=== PATIENT | female | born 1985 | race Caucasian/White ===

== ENCOUNTER 2017-08-09 10:14 | Emergency (ER) | payer BC, OTHER ==
[~2017-08-09] VITALS: Ht 160 cm; Wt 70.0 kg
[~2017-08-09 10:14] MED LIST: METHY500 PO
[2017-08-09 10:16] VITALS: BP 119/82; PULSE 88; RESP 17; TEMP 98.3; O2SAT 97
[2017-08-09] MEDS ORDERED: SODIUM CHLOR 0.9% 1000 ML INJ 1,000 ML IV SCH (10:52)
[2017-08-09] MEDS ORDERED: SODIUM CHLORIDE 0.9% FLUSH 10 ML FLUSH IV FLUSH PRN (11:00)
[2017-08-09 11:11] VITALS: BP 105/73; PULSE 87; RESP 20; TEMP 98.3; O2SAT 98
[2017-08-09 11:31] LABS: BASOPHIL % 0.2 % (0.0-2.0); EOSINOPHIL % 0.2 % (0.0-4.0); HEMATOCRIT 40.5 % (35.0-46.0); HEMO FLAGS DIFF FINAL; LYMPH % 13.6 % (9.0-44.0); LYMPHOCYTE # 1.6 TH/MM3 (1.0-4.8); MEAN CORPUSCULAR HEMOGLOBIN 30.1 PG (27.0-34.0); MEAN CORPUSCULAR HGB CONC 34.2 % (32.0-36.0); MONO % 7.5 % (0.0-8.0); NEUT % 78.5 % (16.0-70.0); PLATELET COUNT 189 TH/MM3 (150-450); WHITE BLOOD COUNT 11.5 TH/MM3 (4.0-11.0)
[2017-08-09 11:43] LABS: ALT (GPT) 20 U/L (10-53); ANION GAP 4 MEQ/L (5-15); AST (GOT) 13 U/L (15-37); BICARBONATE 23.4 MEQ/L (21.0-32.0); BLOOD UREA NITROGEN 10 MG/DL (7-18); CHLORIDE 105 MEQ/L (98-107); GLOMERULAR FILTRATION RATE 179 ML/MIN (>89); POTASSIUM 3.8 MEQ/L (3.5-5.1); SODIUM (NA) 132 MEQ/L (136-145)
[2017-08-09 11:45] LABS: ALKALINE PHOSPHATASE 101 U/L (45-117); TOTAL BILIRUBIN ADULT 0.4 MG/DL (0.2-1.0)
[2017-08-09 11:49] LABS: BACTERIA, URINE FEW /hpf; BLOOD, URINE TRACE (NEG); COMMENT (UR) CULTURE INDICATED; CULTURE IF INDICATED CULTURE INDICATED; GLUCOSE,URINE NEG (NEG); HYALINE CAST, URINE 2 /lpf (RARE); KETONE, URINE NEG (NEG); MUCUS URINE FEW /lpf (OCC); NITRITE,URINE NEG (NEG); SQUAMOUS EPITHELIAL CELL URINE 51 /hpf (0-5); URINE COLOR YELLOW (YELLW/STRAW)
[2017-08-09] MEDS ORDERED: CEPH-460 PO (11:53)
--- NOTE | 2017-08-09 11:54 | PD ---
HPI Chief Complaint: Complaint Time Seen by Provider: 10:32 Travel History International Travel<30 days: No Contact w/Intl Traveler<30days: No Traveled to known affect area: No History of Present Illness HPI Patient is a 33 week 31-year-old female she follows with Dr. Becker. She is 2 para 1. She's had diarrhea for 2 days. It has been nonbloody. He's had no fever. She reports vomiting yesterday afternoon. She reports 8 episodes of diarrhea per day. Decreased urination is reported. No fever. PFSH Past Medical History Medical History: Denies Significant Hx Diminished Hearing: No Tetanus Vaccination: > 5 Years ?: Social History Alcohol Use: No Tobacco Use: No Substance Use: No Allergies-Medications (Allergen,Severity, Reaction): Coded Allergies: sulfamethoxazole (Unverified Allergy, Mild, 08/09/17) trimethoprim (Unverified Allergy, Mild, 08/09/17) Reported Meds & Prescriptions Reported Meds & Active Scripts Active Keflex (Cephalexin) 500 Mg Cap 500 Mg PO Q12H 7 Days Review of Systems Except as stated in HPI: all other systems reviewed are Neg General / Constitutional: No: Fever Physical Exam Narrative GENERAL: 31-year-old female well-nourished well-developed acute distress SKIN: Focused skin assessment warm/dry. HEAD: Atraumatic. Normocephalic. EYES: Pupils equal and round. No scleral icterus. No injection or drainage. ENT: No nasal bleeding or discharge. Mucous membranes pink and moist. NECK: Trachea midline. No JVD. CARDIOVASCULAR: Regular rate and rhythm. No murmur appreciated. RESPIRATORY: No accessory muscle use. Clear to auscultation. Breath sounds equal bilaterally. GASTROINTESTINAL: Gravid abdomen. Soft. MUSCULOSKELETAL: No obvious deformities. No clubbing. No cyanosis. No edema. NEUROLOGICAL: Awake and alert. No obvious cranial nerve deficits. Motor grossly within normal limits. Normal speech. PSYCHIATRIC: Appropriate mood and affect; insight and judgment normal. Data Data Last Documented VS Vital Signs Date Time Temp Pulse Resp B/P (MAP) Pulse Ox O2 Delivery O2 Flow Rate FiO2 08/09/17 12:09 08/09/17 11:11 98.3 87 20 98 Room Air Blood pressure is 105/73 Orders Orders Complete Blood Count With Diff (08/09/17 10:52) Comprehensive Metabolic Panel (08/09/17 10:52) Urinalysis - C+S If Indicated (08/09/17 10:52) Iv Access Insert/Monitor (08/09/17 10:52) Oximetry (08/09/17 10:52) Sodium Chlor 0.9% 1000 Ml Inj (Ns 1000 M (08/09/17 10:52) Sodium Chloride 0.9% Flush (Ns Flush) (08/09/17 11:00) Urine Culture (08/09/17 11:00) Labs Laboratory Tests Test 08/09/17 10:45 08/09/17 11:00 White Blood Count 11.5 TH/MM3 Red Blood Count 4.60 MIL/MM3 Hemoglobin 13.8 GM/DL Hematocrit 40.5 % Mean Corpuscular Volume 88.0 FL Mean Corpuscular Hemoglobin 30.1 PG Mean Corpuscular Hemoglobin Concent 34.2 % Red Cell Distribution Width 13.0 % Platelet Count 189 TH/MM3 Mean Platelet Volume 8.6 FL Neutrophils (%) (Auto) 78.5 % Lymphocytes (%) (Auto) 13.6 % Monocytes (%) (Auto) 7.5 % Eosinophils (%) (Auto) 0.2 % Basophils (%) (Auto) 0.2 % Neutrophils # (Auto) 9.0 TH/MM3 Lymphocytes # (Auto) 1.6 TH/MM3 Monocytes # (Auto) 0.9 TH/MM3 Eosinophils # (Auto) 0.0 TH/MM3 Basophils # (Auto) 0.0 TH/MM3 CBC Comment DIFF FINAL Differential Comment Blood Urea Nitrogen 10 MG/DL Creatinine 0.41 MG/DL Random Glucose 79 MG/DL Total Protein 6.1 GM/DL Albumin 2.5 GM/DL Calcium Level 7.7 MG/DL Alkaline Phosphatase 101 U/L Aspartate Amino Transf (AST/SGOT) 13 U/L Alanine Aminotransferase (ALT/SGPT) 20 U/L Total Bilirubin 0.4 MG/DL Sodium Level 132 MEQ/L Potassium Level 3.8 MEQ/L Chloride Level 105 MEQ/L Carbon Dioxide Level 23.4 MEQ/L Anion Gap 4 MEQ/L Estimat Glomerular Filtration Rate 179 ML/MIN Urine Color YELLOW Urine Turbidity HAZY Urine pH 6.0 Urine Specific [place] 1.029 Urine Protein 30 mg/dL Urine Glucose (UA) NEG mg/dL Urine Ketones NEG mg/dL Urine Occult Blood TRACE Urine Nitrite NEG Urine Bilirubin NEG Urine Urobilinogen LESS THAN 2.0 MG/DL Urine Leukocyte Esterase LARGE Urine RBC 13 /hpf Urine WBC 76 /hpf Urine Squamous Epithelial Cells 51 /hpf Urine Bacteria FEW /hpf Urine Hyaline Casts 2 /lpf Urine Mucus FEW /lpf Microscopic Urinalysis Comment CULTURE INDICATED MDM Medical Decision Making Medical Screen Exam Complete: Yes Emergency Medical Condition: Yes Medical Record Reviewed: Yes Differential Diagnosis IUP, UTI, ectopic , ov torsion, appendicitis, TOA, cervicitis, BV, Trichomoniasis, ov cyst, hernia, mittelschmerz, pain from menstruation Narrative Course CBC & BMP Diagram 08/09/17 10:45 Total Protein 6.1 L, Albumin 2.5 L, Calcium Level 7.7 L, Alkaline Phosphatase 101, Aspartate Amino Transf (AST/SGOT) 13 L, Alanine Aminotransferase (ALT/SGPT ) 20, Total Bilirubin 0.4 Urinalysis: UTI present The patient is resting comfortably and feels better, is alert and in no distress. The patients results and examination findings were discussed. The repeat examination is unremarkable and benign. The history, exam, diagnostic testing, and current condition do not suggest any significant pathology to warrant further testing, continued ED treatment, admission, or surgical evaluation at this point. The vital signs have been stable. The patient does not have uncontrollable pain, intractable vomiting, or other significant symptoms. The patient's condition is stable and appropriate for discharge. The patient will pursue further outpatient evaluation with a primary care physician or other designated or consulting physician as indicated in the discharge instructions. The patient expressed understanding and was agreeable with this plan. Diagnosis Primary Impression: Diarrhea Qualified Codes: R19.7 - Diarrhea, unspecified Additional Impression: Cystitis Referrals: Jorje Burkett MD 2 days Additional Instructions: You have a choice when it comes to health care, and we are glad that you chose [facility]. Hopefully, we have met your expectations on today's visit. You are welcome to return to [facility] at any time, as we are committed to meeting the health care needs of our community. Med/Other Pt SpecificInfo: Prescription(s) given Scripts Cephalexin (Keflex) 500 Mg Cap 500 MG PO Q12H for Infection for 7 Days, #14 CAP 0 Refills Prov: Niko Wagner MD 08/09/17 Disposition: 01 DISCHARGE HOME Condition: Stable Niko Wagner MD Aug 09, 2017 11:54
== END 2017-08-09 12:11 | disposition home or self-care (01) ==
LOC: NEPD 10:14
DX: O23.43 Unspecified infection of urinary tract in pregnancy, third trimester (principal); O26.893 Other specified pregnancy related conditions, third trimester; R19.7 Diarrhea, unspecified; Z3A.33 33 weeks gestation of pregnancy; Z88.2 Allergy status to sulfonamides; Z88.8 Allergy status to other drugs, medicaments and biological substances
CPT/HCPCS: 80053; 81001; 85025; 87086; 96360; 99284; J7030

== ENCOUNTER 2017-09-15 10:02 | Emergency (ER) | payer OTHER ==
[~2017-09-15 10:02] MED LIST changes: +CEPH-460 PO; -METHY500 PO
[2017-09-15] MEDS ORDERED: ONDANSETRON ODT 4 MG TAB PO ONE (10:30)
--- NOTE | 2017-09-15 10:40 | PD ---
HPI Chief Complaint nausea and vomiting 2 day uterine contractions 2 days Date Seen: Sep 15, 2017 Time Seen: 10:15 Travel History International Travel<30 Days: No Contact w/Intl Traveler<30Days: No Known Affected Area: No History of Present Illness HPI Pt is a 32 yo at 38 weeks and [address] Becker. with [facility] 09-28-2017. Pt has had no complications this to date. H/o pre-eclampsia in first . Pt reports nausea and vomiting past 2 days. No sick contacts. Last vomited just before coming in. No fevers or chills. Active movements. Contractions about every 30 minutes. Weeks Gestation: 38 Para: 1 : 2 History Past Medical History Medical History: Denies Significant Hx Obstetric History Obstetric History has 2 year old son. , complicated by pre-eclampsia. Past Surgical History Surgical History: No Previous Surgery Family History Family History: Negative Social History Alcohol Use: No Tobacco Use: No Substance Abuse: No Allergies-Medications (Allergen,Severity, Reaction): Coded Allergies: sulfamethoxazole (Unverified Allergy, Mild, 08/09/17) trimethoprim (Unverified Allergy, Mild, 08/09/17) Home Meds Active Scripts Cephalexin (Keflex) 500 Mg Cap, 500 MG PO Q12H for Infection for 7 Days, #14 CAP 0 Refills Prov:Niko Wagner MD 08/09/17 Review of Systems Except as stated in HPI: all other systems reviewed are Neg Physical Exam Narrative GENERAL: Well-nourished, well-developed patient. SKIN: Warm and dry. HEAD: Normocephalic and atraumatic. EYES: No scleral icterus. No injection or drainage. ENT: No nasal drainage noted. Mucous membranes pink. Airway patent. NECK: Supple, trachea midline. No JVD. CARDIOVASCULAR: Regular rate and rhythm without murmurs, gallops, or rubs. RESPIRATORY: Breath sounds equal bilaterally. No accessory muscle use. BREASTS: Bilateral exam showed no masses , no retractions, no nipple discharge. ABDOMEN/GI: Abdomen soft, non-tender, bowel sounds present, no rebound, no guarding Gravid to [38] weeks size Fundal Height: [38] GENITOURINARY: External Genitalia: intact and normal in appearance BUS glands: [wnl] Cervix: [soft] Dilatation: [4cm] Effacement: [50%] Station: [-3] Presentation: [vertex] Membranes: [intact or ruptured] Uterine Contractions: [occasional, 30 minutes apart] FHT's: Category: [1] Baseline: [130s] Reactive: [-] Variability: [moderate] Decels: [none] EXTREMITIES: No cyanosis or edema. BACK: Nontender without obvious deformity. No CVA tenderness. NEUROLOGICAL: Awake and alert. Motor and sensory grossly within normal limits. Five out of 5 muscle strength in all muscle groups. Normal speech. Data Data Vital Signs Reviewed: Yes Group B Strep: Negative MDM Plan 32 yo at 38 weeks and 1 day. Presents with nausea and vomiting. Contractions every 30 minutes. Cervix dilated 4cm, unchanged from exam in office earlier in the week. Will provide antiemetic, rehydration. 1 hour later, cervical exam unchanged. Feeling better from n/v after ODT Zofran. status remains reassuring. Will DC home with labor precautions, ODT Zofran PRN, liberal fluids. FU appt with Dr Burkett as scheduled. Diagnosis Diagnosis: Primary Impression: with 38 completed weeks gestation Additional Impressions: Nausea & vomiting Uterine contractions during Disposition: DISCHARGE HOME Condition: Stable Scripts Ondansetron Odt (Zofran Odt) 4 Mg Tab 4 MG SL Q8HR Y for Nausea/Vomiting, #15 TAB 0 Refills Prov: Meir Patiño MD 09/15/17 Meir Paitño MD Sep 15, 2017 10:40
[2017-09-15 11:10] LABS: BACTERIA, URINE OCC /hpf; BLOOD, URINE NEG (NEG); COMMENT (UR) CULT NOT INDICATED; CULTURE IF INDICATED CULT NOT INDICATED; GLUCOSE,URINE NEG (NEG); KETONE, URINE NEG (NEG); MUCUS URINE FEW /lpf (OCC); NITRITE,URINE NEG (NEG); SQUAMOUS EPITHELIAL CELL URINE 10 /hpf (0-5); URINE COLOR YELLOW (YELLW/STRAW)
[2017-09-15 11:24] LABS: POTASSIUM 4.1 MEQ/L (3.5-5.1)
[2017-09-15] MEDS ORDERED: LACTATED RINGER'S 1000 ML INJ 500 ML IV ONE (11:30)
[2017-09-15] MEDS ORDERED: ZOFR4TAB3 SL (11:35)
[2017-09-16] MEDS ORDERED: PREN29TA PO (20:05)
[2017-09-17] MEDS ORDERED: OXYC1TAB63 PO (19:02)
== END 2017-09-15 11:52 | disposition home or self-care (01) ==
LOC: HOBED 10:02
DX: O21.9 Vomiting of pregnancy, unspecified (principal); O47.03 False labor before 37 completed weeks of gestation, third trimester; Z3A.38 38 weeks gestation of pregnancy
CPT/HCPCS: 59025; 80048; 81001; 99283; J7120